=== PATIENT | male | born 2000 | race African-American/Black ===

== ENCOUNTER 2020-06-27 12:57 | Emergency (ER) | payer OTHER ==
[2020-06-27 13:05] VITALS: BP 125/73; PULSE 108; TEMP 98.6; BMI 23.5
--- NOTE | 2020-06-27 13:27 | PDOC ---
History of Present Illness - General Chief Complaint: Asthma Stated Complaint: ASTHMA Time Seen by Provider: 06/27/20 13:09 History Source: Parent(s) Exam Limitations: No Limitations - History of Present Illness Initial Comments: 06/27/20 13:24 19 y/old male presents to ED for refill of his Symbicort. Patient states he ran out 3 days ago and today had to use his albuterol for shortness of breath with no wheezing. Patient denies chest pain or dyspnea currently. Patient denies smoking. Is this a multiple visit Asthma Patient?: No Timing/Duration: reports: yesterday Severity: reports: mild Possible Cause: Yes: no prior episodes Associated Symptoms: reports: shortness of breath Past History - Travel History Traveled outside of the country in the last 30 days: No Close contact w/someone who was outside of country & ill: No - Medical History Home Medications: Ambulatory Orders Budesonide/Formeterol Fumarate [SYMBICORT 160/4.5mcg -] 1 inh PO BID #1 cannister 06/27/20 - Psycho-Social/Smoking History Patient Lives Alone: No Lives with/in: parents Smoking History: Unknown if ever smoked - Substance Abuse Hx (Audit-C & DAST Scrn) How often the patient has a drink containing alcohol: Never Score: In Men: 4 or > Positive; In Women: 3 or > Positive: 0 Screen Result (Pos requires Nsg. Audit-10AR): Negative In the last yr the pt used illegal drug/Rx for NonMed reason: No Score: Yes response is considered Positive: 0 Screen Result (Positive result requires Nsg. DAST-10): Negative Review of Systems - Review of Systems Able to Perform ROS?: Yes Constitutional: No: Symptoms Reported HEENTM: No: Symptoms Reported Respiratory: Yes: Shortness of Breath. No: Cough, Wheezing Cardiac (ROS): No: Symptoms Reported ABD/GI: No: Symptoms Reported : No: Symptoms Reported Musculoskeletal: No: Symptoms Reported Integumentary: No: Symptoms Reported Neurological: No: Symptoms reported *Physical Exam - Vital Signs Last Vital Signs Temp Pulse Resp BP Pulse Ox 98.6 F 108 H 17 125/73 99 06/27/20 13:00 06/27/20 13:00 06/27/20 13:00 06/27/20 13:00 06/27/20 13:00 - Physical Exam General Appearance: Yes: Nourished, Appropriately Dressed. No: Apparent Distress HEENT: negative: Pale Conjunctivae Respiratory/Chest: positive: Lungs Clear, Normal Breath Sounds. negative: Respiratory Distress, Accessory Muscle Use Cardiovascular: positive: Regular Rhythm, Regular Rate. negative: Murmur Gastrointestinal/Abdominal: positive: Soft. negative: Tenderness Integumentary: positive: Normal Color, Warm, Moist Neurologic: positive: Motor Strength 5/5 (Ambulatory) Medical Decision Making - Medical Decision Making 06/27/20 13:25 Chief complaint: Patient requesting refill for Symbicort. Patient has no complaints presently but states this morning was short of breath so had to use his albuterol however good effect. Patient denies smoking. Exam: Patient lungs clear to auscultation vital signs stable. O2 sat 99%. Speak patient speaking full sentences. Plan: Confirmed with [facility] patient's dosing of Symbicort which is 160/4.5 mcg. Patient ordered for 1 inhaler with 1 refill Discharge - Discharge Information Problems reviewed: Yes Clinical Impression/Diagnosis: Asthma Condition: Good Disposition: HOME - Follow up/Referral - Patient Discharge Instructions Patient Printed Discharge Instructions: Asthma -- Adult Additional Instructions: Use Symbicort as prescribed twice a day and use your rescue inhaler of albuterol as needed. Follow-up with your primary care physician as needed otherwise return to ED if symptoms worsen. - Post Discharge Activity
== END 2020-06-27 13:30 | disposition home or self-care (01) ==
LOC: JERFT 12:57
DX: J45.909 Unspecified asthma, uncomplicated (principal)
CPT/HCPCS: 99282-25